=== PATIENT | male | born 1960 | race Caucasian/White ===

== ENCOUNTER 2019-07-25 21:58 | Inpatient (IN) ==
[2019-07-25] MEDS ORDERED: VANCOMYCIN 1 GM/NS 1 GM/250 ML IVPB IV ONE (22:32)
[2019-07-25] MEDS ORDERED: ZOSYN 4.5 GM in NS 100 ML IV ONE (22:32)
--- NOTE | 2019-07-25 22:37 | PROVIDER DOCUMENTATION ---
HPI-General Adult - General Chief Complaint: Extremity Pain Stated Complaint: DIABETIC -HAVING ISSUES WITH TOE Time Seen by Provider: 07/25/19 22:08 Source: patient Allergies/Adverse Reactions: Patient Allergies Allergy/AdvReac Type Severity Reaction Status Date / Time No Known Allergies Allergy Verified 10/04/18 14:05 Home Medications: Home Medication List Medication Instructions Recorded Confirmed Last Taken Type Amlodipine Besylate 1 tab PO DAILY 10/04/18 07/26/19 Unknown History Levothyroxine [Synthroid] 50 microgm PO DAILY 10/04/18 07/26/19 Unknown History Lisinopril/Hydrochlorothiazide 1 tab PO DAILY 10/04/18 07/26/19 Unknown History [Lisinopril-Hctz 20-25 mg Tab] Metformin HCl 1 tab PO BID 10/04/18 07/26/19 Unknown History Pantoprazole Sodium 1 tab PO DAILY 10/04/18 07/26/19 Unknown History - History of Present Illness -Gen Adult Nature of Presenting Problems: Presents to the with complaints of pain and infection and in his second digit on the right toe. About 1 year ago he had an amputation of the great toe on that foot and had no problems since then. He states that he noticed a few days ago worsening pain in fection on the second toe. Denies any fevers. He is diabetic. Has not been on any antibiotics recently. Review of Systems - Adult - REVIEW OF SYSTEMS - ADULT Constitutional: reports: see HPI Eyes: reports: no symptoms reported Ears, Nose, Mouth & Throat: reports: no symptoms reported Cardiovascular: reports: no symptoms reported Respiratory: reports: no symptoms reported Gastrointestinal: reports: no symptoms reported Genitourinary: reports: no symptoms reported Musculoskeletal: reports: see HPI Integumentary: reports: see HPI, skin sores/ulcer Neurological: reports: no symptoms reported Psychiatric: reports: no symptoms reported Endocrine: reports: no symptoms reported Hematologic/Lymphatic: reports: no symptoms reported Allergic/Immunologic: reports: no symptoms reported All Other Systems: Reviewed and Negative Past History - Adult - PAST MEDICAL HISTORY-ADULT Review of Records: reports: Old Records Reviewed Physical Exam-General - PHYSICAL EXAM-ADULT Initial Vital Signs Reviewed: Yes - CONSTITUTIONAL General Appearance: appears well, alert, no apparent distress, obese - HEAD, EARS, NOSE, MOUTH & THROAT HENMT: normocephalic/atraumatic - NECK Neck: supple, normal inspection - RESPIRATORY Respiratory: chest non-tender, lungs clear, normal breath sounds, no respiratory distress, no accessory muscle use - CARDIOVASCULAR Cardiovascular: normal peripheral pulses, regular rate, rhythm, no murmur - GASTROINTESTINAL (ABDOMEN) Abdominal Exam: normal bowel sounds, non tender, soft. negative: distended - MUSCULOSKELETAL Back Exam: normal inspection Extremity: erythema, swelling, tenderness, other (right lower leg swelling and erythema up to mid waters consistent with cellulitis, foul smelling, ulcerated 2nd digit with purulent and erythema. Amputated well healed 1st digit on right foot. left leg with multiple hammer toe but no signs of infection) - SKIN Integumentary: erythema, warm - NEUROLOGIC Neurologic: grossly normal - PSYCHIATRIC Psych/Mental Status: normal mood/affect, oriented x 3 Progress - PLAN OF CARE/RESULTS Progress/Plan/Lab Results: Vital Signs - 8 hr 07/25/19 22:03 Temperature 98.3 F Pulse Rate 97 H Respiratory Rate 18 Blood Pressure 169/84 O2 Sat by Pulse Oximetry 96 Orders Category Date Time Status FOOT 2 VIEWS RIGHT [RAD] Stat Exams 07/25/19 22:30 Ordered BLOOD CULTURE [BLDCUL] Stat Lab 07/25/19 22:30 Uncollected CBC WITH ELECTRONIC DIFF [HEME] Stat Lab 07/25/19 22:30 Uncollected COMPREHENSIVE METABOLIC PANEL [CHEM] Stat Lab 07/25/19 22:30 Uncollected CRP HIGH SENSITIVITY Stat Lab 07/25/19 22:30 Ordered LACTATE, PLASMA [CHEM] Stat Lab 07/25/19 22:30 Uncollected SED RATE [HEME] Stat Lab 07/25/19 22:30 Uncollected Vancomycin 1 gm IV Now Med 07/25/19 22:32 Ordered Vancomycin 1 gm/Ns 1 gm in 250 ml IV NOW Zosyn 4.5 gm/Ns IV Now Med 07/25/19 22:32 Ordered Piperacillin/Tazobactam [Zosyn] 4.5 gm 0.9% Sodium Chloride Inj [Ns] 100 ml IV NOW Patient with no WBC but purulent foul smelling toe with tracking up the leg. Spoke to patient aboutthe need for admission. He agrees. Spoke to Dr Jon, supervisor fabrication for hospitalist who accepted patient for admission. Further orders to be placed by their team. Result Diagrams: 07/25/19 22:45 07/25/19 22:45 - XRAY 1 XRAY Study: Foot (possible early osteo) - CONSULTS/PCP/HOSPITALIST Notification #1 *Consult/PCP/Hospitalist*: Dr Jon Time Discussed: 00:32 Consult Disposition: Will see in ED, Admit Departure - Departure Date of Disposition Decision: 07/26/19 Time of Disposition Decision: 00:32 DIAGNOSIS: Diabetic foot infection, Cellulitis of right anterior lower leg Disposition: ADMITTED INPATIENT 09 Certified Medical Emergency: Emergent Condition: Stable Referrals and Follow-Ups: Cuco Brunson MD [Primary Care Provider] - - Critical Care Note This patient required my direct & personal management of CC.: No Attestation - Physician/ ZARIA Attestation Patient care was provided by Advanced Practice Provider:: No The physician spent face to face time with patient:: Yes Advanced Practice Provider documentation review:: Supervising physician onsite and consulted in the evaluation and care of this patient. The physician did have a face to face encounter with the patient.
[2019-07-25 23:24] LABS: BASO# 0.05 X1000 (0.0-0.2); BASO% 0.5 % (0.0-0.8); EOS# 0.25 X1000 (0.0-0.7); EOS% 2.4 % (0.0-10.0); HEMATOCRIT 42.7 % (42.0-52.0); HEMOGLOBIN 13.6 g/dL (14.0-18.0); IMM GRAN# 0.04 X1000 (0.0-0.04); IMM GRAN% 0.4 % (0.0-0.5); LYMPH# 2.47 X1000 (1.2-3.4); LYMPH% 23.6 % (20.5-51.1); MCH 26.2 PG (27-31); MCHC 31.9 g/dL (33-37); MCV 82.1 FL (81-99); MONO# 1.32 X1000 (0.11-0.59); MONO% 12.6 % (1.7-9.3); MPV 11.7 FL (7.4-10.4); NEUT# 6.34 X1000 (1.4-6.5); NEUT% 60.5 % (42.2-75.2); PLT 338 X1000 (130-400); RDW 13.4 % (11.5-14.5); WBC 10.47 X1000 (4.8-10.8)
[2019-07-25 23:29] LABS: AGAP 15; ALB/GLOB RATIO 0.9; ALBUMIN 3.6 g/dL (3.5-5.0); ALKALINE PHOSPHATASE 90 U/L (32-122); BUN 20 mg/dL (8-22); CALCIUM 9.2 mg/dL (8.8-10.2); CHLORIDE 97 mmol/L (98-107); COSMO 287; ESTIMATED GFR > 60; GLUCOSE 349 mg/dL (70-104); GOT 25 U/L (10-34); GPT 24 U/L (10-44); POTASSIUM 4.4 mmol/L (3.5-5.1); SODIUM 135 mmol/L (136-145); TCO2 23 mmol/L (25-35); TOTAL BILIRUBIN 0.44 mg/dL (0.20-1.00); TOTAL PROTEIN 7.7 g/dL (6.3-8.3)
[2019-07-25] MEDS ORDERED: NS 1,000 ML IV ONE (23:43)
[2019-07-26 00:08] LABS: SED RATE 80 mm/hr (0-15)
[2019-07-26] MEDS ORDERED: TYLENOL PO PRN (00:33)
[2019-07-26] MEDS ORDERED: ZOFRAN IV PRN (00:33)
[2019-07-26] MEDS: LOVENOX SUBQ SCH (02:04)
--- NOTE | 2019-07-26 02:37 | HISTORY AND PHYSICAL ---
PHYSICIAN: Patient of Dr. Cuco Brunson. REASON FOR ADMISSION: One-week history of redness and swelling of right foot. HISTORY OF PRESENT ILLNESS: Mr. Boy Barr is a pleasant 58-year-old white male with past medical history of hypothyroidism, hypertension, type 2 diabetes, who comes in today complaining of 1-week history of swelling of the right 2nd toe and redness of his right lower extremity for about a week. He denies stubbing his foot against any object and he does admit to having severe sensory diabetic neuropathy. He denies any fever or chills, but says he feels as if his right foot is hot and warm and the heat is localized to his right waters. He denies any polyuria or polydipsia. No cardiorespiratory complaints. He had an amputation of his right hallux over a year ago in [place], [place]. He denied any discharge from the toe except until this evening when he noticed that his sock was stained with some discharge and the overlying skin at the tip of his right toe had come off. REVIEW OF SYSTEMS: Twelve system review was done. Positive findings per HPI. No GI or complaints. ALLERGIES: No known allergies. HOME MEDICATION: Has not been officially reconciled but he told me he takes metformin 1000 mg daily and Protonix. FAMILY HISTORY: Notable for diabetes in mom and sister. No heart disease in first-degree relatives. No cancer. 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 Otherwise, reflux disease, hypothyroidism, and type 2 diabetes. Denies other chronic problems. SURGICAL HISTORY: Amputation of the right hallux. SOCIAL HISTORY: Does smoke, drink or use illicit drugs. 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 LABORATORY WORK: White count is 10,000, hemoglobin and hematocrit 13 and 42, platelets 338,000 with normal differential. Sedimentation rate is 80. Chemistry, sodium is 135, BUN is 20, creatinine 1.0, glucose 349. C-reactive protein greater than 10. Lactate is normal. Foot x-ray does not show any overt evidence of periosteal elevation. PHYSICAL EXAMINATION: VITAL SIGNS: Blood pressure 169/84, heart rate 97, respiratory rate is 18, temperature is 98.3 degrees. He is 96 on room air. GENERAL: He is a pleasant, morbidly obese white male, not in acute distress. A and O x3 with normal mood and affect. HEENT: Head is normocephalic, atraumatic. Eyes, ADAM, EOMI. He is anicteric and not pale. ENT [*] NECK: Supple. No JVD or carotid bruit. No thyromegaly. CHEST: Clear when auscultated with good air entry both lung vo. CARDIOVASCULAR SYSTEM: First and second heart sounds heard. No gallops, murmurs, rubs. Rhythm is regular. ABDOMEN: Protuberant, soft, nontender. No organomegaly. Bowel sounds are normal. RECTAL: Exam deferred at this time. EXTREMITIES: Patient has good distal pulse volumes in all extremities. Rhythm is regular and symmetrical all extremities. There is noticeable erythema and warmth in the waters area of the right leg. It is shiny. Not indurated. Not fluctuant. The right 2nd digit is swollen, red, not tender. The distal aspect of the right toe is macerated with very little exudation. No interdigital skin breakdown. No clubbing or peripheral cyanosis. NEUROLOGICAL: The patient has diminished tactile sensations. SKIN: Intact. No breakdown, lesion, erythema except for findings noted above. MUSCULAR: Exam is grossly normal. ASSESSMENT: 1. Cellulitis of the right leg and right 2nd toe. 2. Type 2 diabetes, uncontrolled. 3. Hypertension. 4. Hypothyroidism. 5. Morbid obesity. PLAN: Patient will be admitted and started on antibiotics. Would probably recommend consult with Dr. Arce, foot and ankle specialist. It is too early to say if patient would lose the 2nd toe, but I will defer to Dr. Arce. Bone scan was ordered and this is inconclusive. An MRI can be offered. We will get dietitian to see patient for dietary control. I do suspect the patient would benefit from insulin when he goes home since he could not tolerating the HDL-T2 inhibitor prescribed by his family physician. DVT prophylaxis will also be instituted. Await wound cultures which will be done within the hour. cc: Rebeka Jon MD
[2019-07-26] MEDS ORDERED: LANTUS INSULIN SUBQ ONE (03:44)
[2019-07-26] MEDS: NS 1,000 ML IV SCH ×3 (04:38→20:27)
[2019-07-26] MEDS ORDERED: ZOSYN 3.375 GM in NS 50 ML IV SCH (05:00)
[2019-07-26 06:53] LABS: BASO# 0.05 X1000 (0.0-0.2); BASO% 0.6 % (0.0-0.8); EOS# 0.25 X1000 (0.0-0.7); EOS% 2.8 % (0.0-10.0); HEMATOCRIT 38.5 % (42.0-52.0); HEMOGLOBIN 12.4 g/dL (14.0-18.0); IMM GRAN# 0.03 X1000 (0.0-0.04); IMM GRAN% 0.3 % (0.0-0.5); LYMPH# 2.24 X1000 (1.2-3.4); LYMPH% 24.7 % (20.5-51.1); MCH 26.7 PG (27-31); MCHC 32.2 g/dL (33-37); MCV 82.8 FL (81-99); MONO# 1.22 X1000 (0.11-0.59); MONO% 13.5 % (1.7-9.3); MPV 11.6 FL (7.4-10.4); NEUT# 5.27 X1000 (1.4-6.5); NEUT% 58.1 % (42.2-75.2); PLT 286 X1000 (130-400); RBC 4.65 XMIL (4.7-6.1); RDW 13.4 % (11.5-14.5); WBC 9.06 X1000 (4.8-10.8)
[2019-07-26 07:20] LABS: HEMOGLOBIN A1C 16.8 % (4.8-6.0)
--- NOTE | 2019-07-26 07:25 | Diag Imaging Result Doc PS360 ---
EXAM: FOOT 2 VIEWS RIGHT INDICATION: diabetic foot TECHNIQUE: 2 views COMPARISON: None. FINDINGS: There has been prior amputation of the first toe at the tarsometatarsal joint. However, the sesamoid bones remain. There is soft tissue edema around the tip of the second toe and possibly the third toe as well. There is mild irregularity seen at the tips of the distal phalanges of the second and third toe. Osteomyelitis cannot be excluded. No other discrete fracture or dislocation is appreciated. IMPRESSION: Soft tissue edema around the second and possibly the third toe with slight irregularity at the tips of the distal phalanges. Early osteomyelitis cannot be excluded. Electronically signed by Charles Haley 07/26/2019 7:23 AM
[2019-07-26] MEDS: HUMALOG SUBQ SCH ×5 (07:57→21:30)
[2019-07-26] MEDS: ZYVOX PO SCH ×3 (07:57→20:27)
[2019-07-26] MEDS: LANTUS INSULIN SUBQ SCH (08:00)
--- NOTE | 2019-07-26 11:02 | Diag Imaging Result Doc PS360 ---
MRI LOWER EXT W/WO CON-RIGHT - 07/26/2019 INDICATION: right toes osteomyelitis TECHNIQUE: MRI of the right forefoot without and with intravenous contrast COMPARISON: X-rays from 07/25/2019 FINDINGS: There has been previous resection of the first metatarsal and great toe. There is significant dorsal soft tissue edema of the foot. This also extends to the second toe. There is severe diffuse contrast enhancement all around the second toe. There are hammertoe deformities. The bones are intact and normally aligned. Grossly normal bone marrow signal. No fluid collections. IMPRESSION: 1. Significant cellulitis over the second toe. 2. No evidence for osteomyelitis. 3. Pedal edema. Hammertoes. Electronically signed by Vinh Mcgovern 07/26/2019 11:00 AM
--- NOTE | 2019-07-26 14:47 | PROGRESS NOTE ---
DATE: 07/26/2019 SUBJECTIVE: I have seen and examined Mr. Barr today. Mr. Barr refers to be doing well. No new complaints. He was concerned. He wanted to know the result of the MRI. OBJECTIVE: Vital Signs: Blood pressure is 164/79, pulse of 80, respirations 16, temperature is 98 degrees. General: Mr. Barr is a 58-year-old, gentleman. He is in bed. No distress. Mucosa is pink and moist. Anicteric. Acyanotic. Neck: Supple. Chest: Clear to auscultation. No crepitations. No rhonchi. Cardiovascular: Regular rate and rhythm. There are no murmurs, no rubs, no gallops. GI: Abdomen is soft, nontender. Bowel sounds present. Extremities: The right lower extremity is remarkably erythematous in the distal third. The first big toe has surgically been amputated. The second toe has some ulceration at the distal end. The second, third, and fourth toes also look slightly swollen. ELECTRICIAN JOURNEYMAN WIREMAN: The patient is awake, alert, and oriented. IMAGING AND LABORATORY DATA: Laboratory data has been reviewed. Glucose is very high. The patient's A1c is 16.8. An MRI, which was done this morning, shows no evidence for osteomyelitis. ASSESSMENT: 1. Diabetic foot with cellulitis to the second and third toes on the right. Will continue with intravenous antibiotics. MRI has not shown any bony involvement. However, the distal phalanx looks like it is destructive. We will get Orthopedics to evaluate him. 2. Severe uncontrolled diabetes mellitus with presenting A1c of 16.8. Will continue with insulin regimen. 3. Morbid obesity. Body mass index of 46.3. Weight loss advised. 4. Hypothyroidism. The patient is on Synthroid. In general, I think Mr. Barr is stable. He does have a history of methicillin-resistant staphylococcus aureus of the foot in 2019. He is currently on broad-spectrum intravenous antibiotics. I think he is only on Zyvox. I will, however, add Keflex to cover for streptococcus as well as skin staphylococcus as well, and will wait for Orthopedic evaluation. cc: Fletcher Amaya MD
[2019-07-26] MEDS: KEFZOL 2 GM/D5W 2 GM/50 ML IVPB IV SCH ×2 (15:14→22:55)
[2019-07-27] MEDS: LOVENOX SUBQ SCH ×2 (01:28→22:36)
[2019-07-27] MEDS: NS 1,000 ML IV SCH (02:44)
[2019-07-27] MEDS: KEFZOL 2 GM/D5W 2 GM/50 ML IVPB IV SCH ×3 (06:26→22:36)
[2019-07-27] MEDS: HUMALOG SUBQ SCH ×7 (06:58→22:37)
[2019-07-27 07:33] LABS: AGAP 9; BUN 15 mg/dL (8-22); CALCIUM 8.3 mg/dL (8.8-10.2); CHLORIDE 104 mmol/L (98-107); COSMO 284; CREATININE 1.1 mg/dL (0.7-1.2); ESTIMATED GFR > 60; GLUCOSE 233 mg/dL (70-104); POTASSIUM 4.3 mmol/L (3.5-5.1); SODIUM 138 mmol/L (136-145); TCO2 25 mmol/L (25-35)
--- NOTE | 2019-07-27 08:01 | ORTHOPAEDICS CONSULTATION ---
DATE: 07/27/2019 REASON FOR CONSULTATION: Right second toe diabetic ulcer with cellulitis. HISTORY OF PRESENT ILLNESS: Mr. Barr is a 58-year-old, white male with a past medical history of type 2 diabetes (uncontrolled), peripheral neuropathy, hypothyroidism, hypertension, and obesity, who presented to the [facility] on Friday evening after a 1-week history of swelling and redness to the right foot. He states he has had trouble in the past with the second toe. Recently, his primary care provider placed him on 14 days of oral antibiotics, and that did improve it. However, over the last week or so, the redness returned and continued to get worse. He states he does not recall any injury to the foot, but he does have severe neuropathy. He denies fever, chills, shortness of breath, nausea, vomiting, or headaches. He does state the foot has been warm, and he has had swelling and erythema up to the knee. He has had a previous right great toe amputation for osteomyelitis about a year ago. Orthopedics has been consulted for management of the right second toe. REVIEW OF SYSTEMS: A 10-point review of system was completed and negative, except what is mentioned above in the HPI. ALLERGIES: No known drug allergies. PAST MEDICAL HISTORY: 1. Type 2 diabetes, uncontrolled. 2. Peripheral neuropathy. 3. Gastroesophageal reflux disease. 4. Hypothyroidism. 5. Hypertension. 6. Morbid obesity. PAST SURGICAL HISTORY: Amputation of the right great toe and partial metatarsal. SOCIAL HISTORY: He denies smoking, drinking, or illicit drug use. 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 LABORATORY DATA: His white count is 9.06, hemoglobin and hematocrit 12.4 and 38.5, platelet count is 286,000. His glucose has been running anywhere from 200 to 350 since his arrival. His hemoglobin A1c is 16.8. His BUN and creatinine are 20 and 1. PHYSICAL EXAMINATION: Vital Signs: His temperature is 97.8 degrees, pulse 77, respirations 18, blood pressure 159/73, and he is 95% on room air. General: This is a very pleasant, but morbidly obese, 58-year-old male in no acute distress. Neurological: He is alert and oriented x3 with no focal deficits. HEENT: Head is atraumatic, normocephalic. Pupils equal, round, reactive to light. Cardiovascular: Regular rate and rhythm. Pulmonary: Breathing is even and unlabored with equal chest expansion. Abdomen: Again, he is obese, but abdomen appears nondistended and nontender. Extremities: The right lower extremity is missing the great toe. There is a well- healed incision there. The right second toe does have a large ulcer on the tip. There is some purulent drainage, as well as significant erythema to the toe. He does have some erythema to the lower leg as well. He has quite a bit of swelling to the lower leg and down into the foot as well. He does have very little sensation to the lower extremity. He has none to the toes. IMAGING: A lower extremity MRI showed no obvious evidence for osteomyelitis at the second toe. It did show significant cellulitis. A foot film did show some degenerative changes to that distal phalanx. ASSESSMENT: Right second toe diabetic ulcer with cellulitis. PLAN: We are going to have Mr. Barr continue his IV antibiotics for a few more days. Dr. Arce did do an excisional debridement using forceps and scalpel to remove the callus over that second toe. There was a shallow ulcer underneath that did have drainage. It did probe to bone. He did have bleeding during the debridement. We are going to give him a couple of days to see if the antibiotics can improve things. If not, we will plan to do a second toe amputation in the OR, possibly on . Will keep an eye on things and see if he progresses. If not, will plan to do that. We have already discussed this with him, and will talk to him in more depth, depending on how the antibiotics work. Thank you for the consultation. Dictated by ANITA Lockhart for Adrián Arce MD cc: ANITA Lockhart MD
[2019-07-27] MEDS: ZYVOX PO SCH ×2 (08:19→22:36)
[2019-07-27] MEDS: LANTUS INSULIN SUBQ SCH (08:20)
--- NOTE | 2019-07-27 18:21 | PROGRESS NOTE ---
DATE: 07/27/2019 SUBJECTIVE: Mr. Barr is a 58-year-old who came in on 07/25/2019. He is a patient of Dr. Cuco Brunson with a 1-week history of redness and swelling in his right foot. Mr. Barr is a 58-year- old with a Past Medical History of hypothyroidism, hypertension, and diabetes mellitus type 2. He came in complaining of 1 week of swelling in his right 2nd toe, and redness in the right lower extremity for about a week. He denies any trauma to his foot or stubbing his foot against an object, and he does admit to having severe sensory diabetic neuropathy. Denies any fever or chills, but feels like his right foot is hot and warm, and he is localized on the right waters. Denies any polyuria or polydipsia. No cardiorespiratory complaints. He had an amputation of his right hallux over a year ago in [place], [place]. Denied any discharge from the toe except until this evening of admission noticed that he had his sock was stained, and some discharge overflow from the skin and some crusting on the top of his foot. Admission diagnosis of cellulitis of right leg and right 2nd toe, underlying diabetes mellitus, hypertension, and hypothyroidism. He consulted Dr. Arce, and he will continue to follow. MRI was planned, and try to control his sugar, and continue broad- spectrum antibiotics. He could not tolerate his HDL T2 inhibitor prescribed by his family physician. OBJECTIVE: On exam today, he does feel better. He was hoping to go home today. Right foot seems to be less painful, less swollen, and less redness. Temperature 98.3 degrees, pulse 72, respirations 20, and blood pressure 157/78. Pupils are equal and round. Lungs are clear in all lung vo. Cardiovascular: Regular rhythm and rate without murmur or S3. Urine output is 2000 mL from today yesterday. Actually, urine output today was thus far 1000 mL yesterday. He had almost 800 mL. Last several blood sugars 291, 99, 222, and 212. ASSESSMENT AND PLAN: 1. Diabetic right foot with cellulitis 2nd and 3rd toes on the right. Continue IV antibiotics. MRI did not show any bony involvement, however, he has a distal phalanx that looks like there is some destruction. Orthopedics is involved. 2. Continue control of diabetes mellitus. His hemoglobin A1c was 16.8. 3. Morbid obesity. Body mass index 46.3, and so I have advised on weight loss and low carb diet. 4. Hypothyroidism. He is on Synthroid, appears euthyroid. He does have a history of methicillin- resistant Staphylococcus aureus in his foot in 2019, currently on broad-spectrum IV antibiotics. His cultures thus far, blood cultures from the 8th no growth. Lower extremity MRI significant cellulitis over the 2nd toe. No evidence of osteomyelitis. Pedal edema and hammertoes appreciated. Appreciate Dr. Arce's help. Continue present treatment. CURRENT ORDERS: 1. He is on insulin Lantus 25 units subcutaneous daily, Humalog 5 units subcutaneous t.i.d. 2. He is on cefazolin 2 g IV q.8 hours. 3. Zyvox 600 mg p.o. b.i.d. cc: Wagner Solis MD
[2019-07-28] MEDS: LOVENOX SUBQ SCH ×2 (02:53→22:35)
[2019-07-28] MEDS: KEFZOL 2 GM/D5W 2 GM/50 ML IVPB IV SCH ×3 (06:35→22:35)
[2019-07-28] MEDS: HUMALOG SUBQ SCH ×7 (06:35→22:36)
[2019-07-28] MEDS: ZYVOX PO SCH ×2 (08:08→22:35)
[2019-07-28] MEDS: LANTUS INSULIN SUBQ SCH (08:09)
--- NOTE | 2019-07-28 08:50 | PROGRESS NOTE ---
DATE: 07/28/2019 SUBJECTIVE: Mr. Barr is a 58-year-old. His foot is better overall. His toe is still red, and I think we are going to wait another day and see how we are doing and still decide on whether he needs surgery or go home with antibiotics. He is comfortable. He is eating. Bowels are moving. He is getting some sleep. OBJECTIVE: Vital Signs: He remains afebrile. Temperature 98.1 degrees, pulse 68, respirations 20, blood pressure 178/98. Last several blood pressure: 162/80, 154/78, 162/76, 178/98. HEENT: Pupils are equal and round. Lungs: Clear in all lung vo. Cardiovascular: Regular rhythm and rate without murmur or S3. Abdomen: Soft. Skin: Warm and dry. Urine Output: 1000 mL. Blood sugars: 222, 212, 206, and 206. ASSESSMENT AND PLAN: 1. Right 2nd toe diabetic ulcer with cellulitis. Continue IV antibiotics another day. Dr. Arce did an excisional debridement using forceps and scalpel to remove the callus over the 2nd toe. There was a shallow ulcer underneath. It did have some drainage. It did probe to the bone. It did have bleeding during the debridement, so I think we are going to continue antibiotics and see where we are. The MRI did not show bony involvement. 2. Diabetes mellitus type 2. Hemoglobin A1c was 16.8 so continue, sugars under better control. 3. Morbid obesity, body mass index is 46, so continue to encourage weight loss. 4. Hypothyroidism. He is on his Synthroid. Appears to be euthyroid on exam. 5. History of methicillin-resistant Staphylococcus aureus in his foot in 2019. Continue his broad-spectrum antibiotics. There is no growth from blood cultures from 07/25/2019. He is on cefazolin 2 grams intravenously every 8 hours and linezolid 600 mg by mouth twice daily. I do not have any other identification at this point. cc: Wagner Solis MD
--- NOTE | 2019-07-28 09:22 | ORTHOPAEDICS PROGRESS NOTE ---
DATE: 07/28/2019 SUBJECTIVE: Mr. Barr is lying in bed this morning. Overall feeling okay. OBJECTIVE: On right lower extremity exam, the toe looks about the same as it did yesterday. It is still erythematous and a little bit of drainage out of the tip of the toe. The erythema, even up on the leg, looks about the same. ASSESSMENT: 1. Right second toe diabetic foot ulcer. 2. Right leg cellulitis. PLAN: I discussed with Mr. Cobian about his toe. We are going to give him another day to see if this will begin to clear up. If he has really had no improvement after 3 days of IV antibiotics, then I would recommend we amputate that second toe. I did go over this with him today. We will make that decision in the morning. He will be n.p.o. after midnight tonight, just in case we are going to do surgical intervention. cc: Adrián Arce MD
[2019-07-29] MEDS: KEFZOL 2 GM/D5W 2 GM/50 ML IVPB IV SCH (06:16)
[2019-07-29] MEDS: HUMALOG SUBQ SCH ×4 (06:41→13:37)
[2019-07-29] MEDS ORDERED: VANCOMYCIN IV PER PHARMACY MISC SCH (09:00)
--- NOTE | 2019-07-29 09:01 | DISCHARGE SUMMARY ---
ADMISSION DATE: 07/25/2019 DISCHARGE DATE: 07/29/2019 HISTORY OF PRESENT ILLNESS: This is a 58-year-old patient of Dr. Cuco Brunson, was admitted on 07/25/2019. A 58-year-old, white male with a past medical history of hypothyroidism, hypertension, diabetes mellitus type 2, who presented on 07/25/2019 with a 1-week history of swelling in the second toe, redness of his right lower extremity for about a week. Denies stubbing his foot against any object. He does admit to having severe diabetic neuropathy. Denies any fever or chills but says he feels as if his right foot is hot and warm, and has heat localized in his right waters. He denies any polyuria or polydipsia. No cardiorespiratory complaints. 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 He denied any discharge from his toe except until the evening of admission, noticed that his sock was stained and there was some discharge. He was admitted. ADMITTED DIAGNOSES: 1. Cellulitis of the right leg and right second toe. 2. Diabetes mellitus type 2, poorly controlled. 3. Hypertension. 4. Hypothyroidism. 5. Morbid obesity. HOSPITAL COURSE: He had a foot x-ray on 07/25/2019, soft tissue edema around the second and possibly the third toe with slight irregularity at the tips of the distal phalanges. Early osteomyelitis could not be excluded on the x-ray, so he had an MRI of the lower extremity. Significant cellulitis of the second toe. No evidence of osteomyelitis. Pedal edema and hammertoes were appreciated. Orthopedic evaluated. Dr. Arce had followed him and his plan was to continue the IV antibiotics a few more days and then he explored it with excisional debridement using forceps and scalpel to remove the callus over the second toe. There was a shallow ulcer underneath that did have some drainage. Probed it and it did probe to the bone. He did have bleeding during the debridement. Going to give a couple days of antibiotics to improve things and we are thinking about a second toe amputation in the OR. His leg and toe improved. The redness got better and he wanted to watch it for another week. If no improvement after 3 days of IV antibiotics, he was going to amputate the second toe but he is going to give it a little bit of time. Because he was able to probe down to the bone, I think we have to treat this as osteomyelitis so we are going to get a PICC line placed. I am going to recommend 6 weeks of IV antibiotics. We do not see radiographic evidence of involvement in the bone but the ulcer did go down to the bone and I think we have to continue to treat it. We do not have culture data that really helps us so I really think he has got good renal function. I think we ought to go ahead and use a PICC line and use vancomycin, and see if we can get that set up with home health. cc: Wagner Solis MD
[2019-07-29] MEDS: LANTUS INSULIN SUBQ SCH (09:31)
[2019-07-29] MEDS ORDERED: VANCOMYCIN 2,500 MG in NS 500 ML IV ONE (10:00)
[2019-07-29 10:23] LABS: INR 0.98; PROTIME 13.1 Seconds (11.0-16.0)
--- NOTE | 2019-07-29 12:37 | ORTHOPAEDICS PROGRESS NOTE ---
DATE: 07/29/2019 SUBJECTIVE DATA: Mr. Barr is lying in bed. Overall, he is doing well. OBJECTIVE DATA: Right lower extremity exam of the second toe does have a little bit less erythema. There is not really any erythema to the foot. The erythema to the lower leg has improved as well. There is a little bit of drainage on the tip of the toe. Overall, his swelling looks a bit better. ASSESSMENT: 1. Right second toe diabetic foot ulcer. 2. Right leg cellulitis. PLAN: I think the antibiotics have helped improve Mr. Brar's overall cellulitis. We discussed with him and we are okay with letting him go home on oral antibiotics and seeing if this continues to improve. We are going to continue to do local wound care. I will do Vashe to clean the toe and then do a wet-to-dry dressing daily. We are going to follow up with him in the office in one week from his discharge. We did discuss that this may lead to amputation, but we are okay with giving it more time to see if it will improve. It did overall look better today. So, we will see him in the office. He knows to call with any worsening in symptoms. Dictated by ANITA Lockhart for Adrián Arce MD cc: ANITA Lockhart MD
[2019-07-29 15:11] VITALS: BP 181/81
--- NOTE | 2019-07-29 16:17 | DISCHARGE SUMMARY ---
ADMISSION DATE: 07/25/2019 DISCHARGE DATE: 07/29/2019 This is a 58-year-old patient of Dr. Cuco Brunson. He came in with 1-week history of redness and swelling in his right foot. Mr. Barr is a 58-year-old male presented past medical history hypothyroidism, hypertension, diabetes mellitus type 2. Came in complaining of 1-week history of swelling in his right 2nd toe and redness in his right lower extremity for about a week came in on 07/25/2019. Denies stubbing his foot against any object. He does admit to having severe sensory diabetic neuropathy. Denies any fever, chills, feels that his right foot is hot, warm but the heat is located in his right waters. Denies any polyuria or polydipsia, no cardiorespiratory complaints. He has had amputation of his right hallux over a year ago in [place], [place]. He denies any discharge from the toe except on that evening when he came in he had some discharge on his sock. ADMISSION DIAGNOSIS: 1. Cellulitis of the right leg and right 2nd toe. 2. Diabetes mellitus poorly controlled. 3. Hypertension. 4. Hypothyroidism . 5. Morbid obesity. He had lower extremity MRI done significant cellulitis over the 2nd toe. No evidence of osteomyelitis. There is some pedal edema and hammertoe was appreciated. Orthopedics was asked to see. They felt that he did some excisional debridement using forceps and scalpel to remove the callus over the 2nd toe. There was a shallow ulcer under that, did have some drainage. He did probe to the bone. He did have bleeding during the debridement and so continued IV antibiotics, we did not see any radiographic evidence of osteomyelitis but because he did probe and ulcer went down to the bone will treat him aggressively with IV antibiotics for 6 weeks. [place] he could go home. Dr. Arce will follow him as an outpatient. He will get vancomycin 2500 mg once a day. Will check peak and trough and will get home health involved. He will be discharged on Lantus insulin 25 units subcu daily and he had a PICC line placed for the Vancomycin. He will get his amlodipine 1 tablet a day, Synthroid 50 mcg a day, lisinopril hydrochlorothiazide 20/25 mg tablet p.o. once a day, metformin I think it is a 1000 mg twice a day and pantoprazole 40 mg daily. Follow up with Dr. Cuco Brunson and follow up with Dr. Arce in a couple days. cc: Wagner Solis MD
[2019-07-29] MEDS ORDERED: VANCOMYCIN 1,650 MG in NS 250 ML IV SCH (23:00)
== END 2019-07-29 16:37 | disposition home or self-care (01) | DRG 623 ==
LOC: ED 21:58 → 4N 21:59 → SUATTDRO 21:59
PROVIDERS: ATTEND Emergency Medicine